=== PATIENT | male | born 1985 | race Caucasian/White ===

== ENCOUNTER 2025-09-06 07:38 | Emergency (ER) | payer MEDICAID ==
[~2025-09-06] VITALS: Ht 182.9 cm; Wt 125.0 kg
[2025-09-06 07:44] VITALS: O2SAT 98
[2025-09-06] MEDS ORDERED: TOPUD PO (08:50)
[2025-09-06] MEDS: KETOROLAC 15MG/ML VIAL IM ONE (09:10)
[2025-09-06] MEDS: ACETAMINOPHEN WITH CODEINE 300/30MG TABLET PO ONE (09:11)
[2025-09-06 09:20] VITALS: BP 134/86; PULSE 70; RESP 16; TEMP 36.8; O2SAT 99
== END 2025-09-06 09:21 | disposition home or self-care (01) ==
LOC: ER 07:38
DX: M54.40 Lumbago with sciatica, unspecified side (principal); Z79.899 Other long term (current) drug therapy
CPT/HCPCS: 99283; 72100; 96372; J1885